=== PATIENT | male | born 1950 | race Caucasian/White ===

== ENCOUNTER → 2018-07-19 | Outpatient (CLI) | payer MEDICARE, OTHER ==
[~2018-07-19] MED LIST: AMOX-559 PO; BENA1TAB59 PO; BENA20TA64 PO; DOXY-179 PO; ENOX80DI8 SQ; ESOM20CA31 PO; ESOM40CA42 PO; FOL1 PO; FOLI-68 PO; HYDR-2966 PO; IBUP-136 PO; LAN30PT PO; LOPE-84 PO; METH4TAB66 PO; MULT-1335 PO; MULT1CAP59 PO; NAP375 PO; NO ROUTINE MEDS; OMEP-125 PO; OMEP-137 PO; PNEI IM; PNEU0.5D3 IM; ROSU10TA5 PO; SILD100T59 PO; SILD25TA6 PO; TADA5TAB7 PO; TRIA10.8; VITA150T2 PO; VITAMIN B 6; WAR5 PO; WARF5TAB23 PO; [UNRECOGNIZED DRUG - CODE] PO; [UNRECOGNIZED DRUG - REMARK]
== END ==
LOC: AUD 08:30
PROVIDERS: ATTEND Otolaryngology
DX: H93.13 Tinnitus, bilateral (principal)
CPT/HCPCS: 92557; 92570

== ENCOUNTER → 2018-08-05 | Outpatient (CLI) | payer MEDICARE, OTHER ==
--- NOTE | 2018-08-05 14:58 | RADIOLOGY IMAGING REPORT ---
FACILITY: [facility] PATIENT NAME: Gemini Healy : 1950 MR: [id number] V: [id number] EXAM DATE: ORDERING PHYSICIAN: GEMINI PERSAUD TECHNOLOGIST: Location: [facility] Patient: Gemini Healy : 1950 Visit/Account:[id number] Date of Sevice: 08/05/2018 EXAMINATION: Ultrasound scrotum with Doppler evaluation HISTORY: Bilateral orchialgia. COMPARISON: Scrotal ultrasound from 06/01/2011. FINDINGS: Testes: Normal in size and echogenicity without mass or microlithiasis. The right testis measures 4. 8 x 2.7 x 3.4 cm and the left testis measures 4.9 x 2.3 x 3.1 cm. Symmetric blood flow documented by color Doppler ultrasound. Low resistance arterial blood flow within each testicle by duplex Doppler ultrasound. Venous blood flow is also documented. Epididymides: Negative. Blood flow is appropriate in each epididymis by color Doppler ultrasound. Hydrocele: There is a moderate right hydrocele with a few low-level internal echoes, measuring 3.3 x 2.0 x 3.4 cm. Trace left hydrocele. Varicocele: None. IMPRESSION: 1. Moderate, mildly complex right hydrocele. 2. No testicular mass or torsion. Report Dictated By: Verónica Byrd MD at 08/05/2018 2:48 PM Report E-Signed By: Verónica Byrd MD at 08/05/2018 2:51 PM WSN:[id number]
== END ==
LOC: US 01:14
DX: N43.3 Hydrocele, unspecified (principal); N50.819 Testicular pain, unspecified
CPT/HCPCS: 76870